=== PATIENT | male | born 1975 | race Caucasian/White ===

== ENCOUNTER → 2017-11-03 | Day surgery (SDC) | payer OTHER ==
[2017-10-21 08:25] VITALS: Ht 177.8 cm; Wt 100.0 kg
--- NOTE | 2017-11-02 16:30 | History and Physical: Surg Cnt ---
History & Physical Date Nov 02, 2017. Chief Complaint sinus infections History of Present Illness The patient is a 42 year old male with complaints of chronic sinusitis Allergies Coded Allergies: NO KNOWN DRUG ALLERGIES (Verified Allergy, Unknown, ., 10/21/17) Home Medications Scheduled Hydrochlorothiazide (Hctz), 50 MG PO QAM Scheduled PRN Albuterol Sulfate (Proair Respiclick), 2 PUFF INH Q4H PRN for Shortness of Breath Alprazolam (Xanax), 0.25 MG PO DAILY PRN for Anxiety Diagnosis chronic sinusitis, septal deviation Plan of Treatment septoplasty, endoscopic sinus surgery
[~2017-11-03] VITALS: Ht 177.8 cm; Wt 100.0 kg
[~2017-11-03] MED LIST: ALBU18002 INH; ALPR0.25 PO; ATROPINE SULFATE 0.1 MG/ML 5ML SYR IV PRN; BACITRACIN OINT 15 GM TUBE ONE; CEFAZOLIN 2000MG IV PUSH 10 ML IV SCH; DEXAMETHASONE SOD INJ 4 MG/ML VIAL ONE; EpHEDrine SULFATE INJ 50 MG/ML AMP IV PRN; EpINEphrine INJ 1MG/ML AMP 1 MG/ML AMP ONE; FENTANYL CITRATE INJ 50 MCG/1 ML 2 ML VIAL ONE; GELATIN SPONGE 12-7MM ONE; HYDR50TA3 PO; HYDROmorphone INJ 1 MG/ML SYR IV PRN; HydrALAZINE HCL 20 MG/ML VIAL ONE; LABETALOL HCL IV 5 MG/ML 20ML IV ONE; LABETALOL HCL IV 5 MG/ML 20ML IV PRN; LACTATED RINGER'S 1000ML 1,000 ML IV SCH; LIDO 2%/EPINEPHRINE 1:100000 20 ML VIAL INFIL ONE; LIDOCAINE 4% MPF SOAK 5 ML = 1 DOSE TOP ONE; LIDOCAINE HCL 2% 2 ML VIAL (20MG/ML) ONE; MIDAZOLAM HCL 1 MG/ML 2ML VIAL ONE; ONDANSETRON INJ 2 MG/ML 2 ML VIAL IV PRN; ONDANSETRON INJ 2 MG/ML 2 ML VIAL ONE; OXYC-57 PO; OXYCODONE/ACETAMINOPHEN 5-325 TAB PO PRN; PROMETHAZINE HCL INJ 12.5 MG in SODIUM CHLORIDE 0.9% 50ML 50 ML IV PRN; PROPOFOL IV EMULSION 10 MG/ML 20 ML VIAL IV ONE; SODIUM CHLORIDE 0.9% 1000ML 1,000 ML IV SCH
--- NOTE | 2017-11-03 07:57 | History & Physical Bridge Note ---
H&P Re-Evaluation Bridge Note: I have examined the patient, reviewed the History & Physical and in the interval since the performance of the History & Physical I have noted the following changes of clinical significance: No changes noted
--- NOTE | 2017-11-03 10:54 | [facility] Post Operative Brief Note ---
Immediate Operative Summary Operative Date Nov 03, 2017. Pre-Operative Diagnosis Chronic Sinusitis; Septal Deviation Post-Operative Diagnosis Same Procedure(s) Performed Septoplasty, Endoscopic Sinus Surgery using [employer] Navigation, Bilateral Maxillary and Bilateral Frontal Sinus Surgery Surgeon Dr. Dash Casino Dealer Surgeon(s) None Estimated Blood Loss 40 ML Findings polypoid mucosal thickening Specimens None Anesthesia Gen Complication(s) None Disposition Recovery Room / PACU
--- NOTE | 2017-11-03 10:55 | Discharge Instructions-SurgCtr ---
Discharge Instructions Date of Service Nov 03, 2017. Visit Reason for Visit: Chronic Sinusitis, Septal Deviation Discharge Discharge Diagnosis / Problem: same Discharge Goals Goal(s): Improve function Activity Recommendations Activity Limitations: resume your previous activity Anesthesia . Post Anesthesia Instructions: If you have had General Anesthesia or IV Sedation: * Do not drive today. * Resume driving when surgeon permits. * Do not make important decisions or sign legal documents today. * Call surgeon for: 1. Temperature elevations greater than 101 degrees F. 2. Uncontrollable pain. 3. Excessive bleeding. 4. Persistent nausea and vomiting. 5. Medication intolerance (nausea, vomiting or rash). * For nausea and vomiting use only clear liquids such as: tea, soda, bouillon until nausea subsides, then gradually increase diet as tolerated. * If you have any concerns or questions, call your surgeon's office. If physician is unavailable and it is an emergency, call 911 or go to the nearest emergency room. . Instructions / Follow-Up Instructions / Follow-Up ACTIVITY RECOMMENDATIONS: * Being up and around is good, but no strenuous activity, heavy lifting or physical exertion for one week. * Keep your head elevated 30 degrees when lying down or sleeping. * Do not blow your nose for 48 hours, sniff back instead. * Avoid hot showers. OVER THE COUNTER MEDICATIONS: * You may use Tylenol * Avoid aspirin or aspirin containing products, e.g. as they may increase bleeding. SPECIAL CARE INSTRUCTIONS: * Expect to have bloody drainage from your nose and/or down your throat for one to three days. Change drip pad as needed. * Begin irrigating your nose with saline solution today, at least six to ten times per day and sniff back to help remove old clots or crust. * You may experience nasal and facial congestion, pain and pressure, this is normal. * Please call with any significant and/or progressive pain, redness, swelling around the eyes, visual changes, fever of 101.5 degrees F, active bleeding or any problems or concerns. * If active bleeding occurs, spray the nose three times at one minute intervals with Afrin spray and call or cell phone: . If unable to reach the doctor, go to the nearest Emergency Department. Special Diet: * Avoid extremely hot fluids. FOLLOW UP VISIT: Follow-up Visit with Dr. Dash If not already scheduled, please call to schedule. Diet Recommendations Home Diet: no limitations Procedures Procedures Performed: Septoplasty, Endoscopic Sinus Surgery using [employer] Navigation, Bilateral Maxillary and Bilateral Frontal Sinus Surgery Pending Studies Studies pending at discharge: no Medical Emergencies . Who to Call and When: Medical Emergencies: If at any time you feel your situation is an emergency, please call 911 immediately. . Non-Emergent Contact Non-Emergency issues call your: Primary Care Provider . . "Provider Documentation" section prepared by Elif Dash. . [place] Drug Monitoring Program Search Results: no issues identified
--- NOTE | 2017-11-03 11:13 | [facility] Operative Report ---
Operative Report Operative Date Nov 03, 2017. Pre-Operative Diagnosis Chronic Sinusitis; Septal Deviation Post-Operative Diagnosis Same Procedure(s) Performed Septoplasty, Endoscopic Sinus Surgery using [employer] Navigation, Bilateral Maxillary and Bilateral Frontal Sinus Surgery Surgeon Dr. Dash Retort Furnace Operator Surgeon(s) None Estimated Blood Loss 40 ML Findings Polypoid mucosal thickening in ethmoid sinuses and nasal frontal ducts and maxillary sinuses Specimens None Anesthesia general with LMA Complication(s) None Disposition Recovery Room / PACU [employer] Indications 42-year-old gentleman with significant nasal obstruction, recurrent and chronic sinusitis, tightness aggravating his asthma, and sleep apnea with inability to wear his CPAP Description of Procedure The patient was brought to the operating room and placed in the supine position. He was prepped and draped in the usual sterile manner. [employer] device was calibrated and used for the entire procedure. The nose was decongested using topical cottonoids with a solution of 4 mL of 4% Xylocaine with 1 mL of epinephrine. Injection of 2% Xylocaine with 1 1000 strength epinephrine was also used. The right maxillary sinus was cannulated with guidewire and dilated using the 6 mm balloon as was the left maxillary sinus. The left nasal frontal duct was cannulated with guidewire and dilated using the 6 mm balloon the guidewire was left in place as a marker frontal sinusotomy was performed using the shaver couple with the [employer] device following the guidewire superiorly opening up the Shane nasi cell by removing the anterior wall than the posterior wall of the Shane nasi cell to open up the nasal frontal duct leaving the mucosa there are intact. At this point total ethmoidectomy was performed using the shaver opening up the bullae ethmoidalis going through the ground lamella into the posterior ethmoid air cells delineating the posterior most ethmoid air cell along with the skull base superiorly and lamina papyracea bilaterally and then following the structures anteriorly exonerating all the posterior and then all the anterior ethmoid air cells up to the previously dilated nasal frontal duct. Maxillary sinus was opened by removing polypoid mucosa at the posterior border at the anterior wall the bullae ethmoidalis. The right frontal sinusotomy total ethmoidectomy and maxillary sinus antrostomy was performed in a similar manner. Endoscopic septoplasty was performed removing a severely deviated septum toward the right. A right Lorenzo incision was made and the mucoperichondrium was elevated off the left side the septum. Cartilage incision was made and bilateral posterior tunnels were elevated. Cartilage was inferiorly from the vomer maxillary crest and posteriorly from the perpendicular plate of the ethmoid. Deviated portion of the cartilage and the perpendicular plate of the ethmoid were removed in small pieces using the Tung rongeurs and the caudal dissector and the Man forceps. A cartilaginous strip of cartilage was removed from inferiorly to allow the septum to return to the midline. Propel stents were placed. A single piece of Gelfoam was placed along the right side of the septum packing the mucoperichondrial flap in place. The patient her procedure well was taken recovery are in satisfactory condition. I attest to the content of the Intraoperative Record and any orders documented therein. Any exceptions are noted below.
[2017-11-03] MEDS: FENTANYL CITRATE INJ 50 MCG/1 ML 2 ML VIAL IV PRN ×4 (11:27→12:02)
[2017-11-03] MEDS: HydrALAZINE HCL 20 MG/ML VIAL IV. PRN ×3 (12:20→12:47)
--- NOTE | 2017-11-03 13:05 | Anesthesia Progress Nt - [facility] ---
Anesthesia Post Op Note Date & Time Nov 03, 2017 at 13:05 Vital Signs Pain Intensity: 4.0 Vital Signs Past 12 Hours Date Time Temp Pulse Resp B/P (MAP) Pulse Ox O2 Delivery O2 Flow Rate FiO2 11/03/17 12:50 84 4 99 18 12:50 84 4 18 12:45 84 4 142/104 100 11/03/18 12:45 84 4 18 12:44 145/103 18 12:40 83 15 18 12:40 83 15 160/117 100 18 12:35 84 10 149/107 95 18 12:35 83 10 18 12:30 84 10 144/107 11/03/17 12:30 10 11/03/17 12:25 81 6 18 12:25 85 6 157/110 92 11/03/17 12:20 12 11/03/17 12:20 79 12 145/104 18 12:15 76 15 152/121 97 11/03/17 12:15 86 15 18 12:10 69 10 18 12:10 64 10 170/115 18 12:05 72 10 160/118 18 12:05 76 10 18 12:00 71 8 167/121 100 18 12:00 76 8 18 11:55 74 6 11/03/18 11:55 78 6 157/107 90 18 11:50 86 18 142/110 100 18 11:50 86 18 18 11:45 83 9 140/113 99 11/03/18 11:45 77 9 11/03/18 11:40 74 10 11/03/18 11:40 79 10 146/115 18/18 11:35 75 13 144/105 18/18 11:35 13 18/18 11:31 148/101 18/18 11:30 83 15 96 18/18 11:30 83 15 18/18 11:25 73 12 153/109 99 11/03/18 11:25 74 12 11/03/18 11:22 157/118 1/18/18 11:20 81 22 166/122 100 11/03/17 11:20 82 22 11/03/17 11:19 151/118 11/03/17 11:17 165/127 11/03/17 11:16 175/119 11/03/17 11:15 36.6 86 12 173/120 100 Humidified Oxygen 7 Mask 11/03/17 11:15 82 13 96 11/03/17 11:15 85 13 11/03/17 07:37 36.3 75 16 133/89 (104) 95 Room Air Notes Mental Status: alert / awake / arousable, participated in evaluation Pt Amnestic to Procedure: Yes Nausea / Vomiting: adequately controlled Pain: adequately controlled Airway Patency, RR, SpO2: stable & adequate BP & HR: stable & adequate Hydration State: stable & adequate Anesthetic Complications: no major complications apparent
[2017-11-03 13:08] VITALS: TEMP 36.9
[2017-11-03 13:56] VITALS: BP 132/83; PULSE 93; O2SAT 94
== END | disposition home or self-care (01) ==
LOC: X.SURG 07:19
PROVIDERS: ATTEND Otolaryngology
DX: J32.9 Chronic sinusitis, unspecified (principal); J34.2 Deviated nasal septum; J45.909 Unspecified asthma, uncomplicated; K76.0 Fatty (change of) liver, not elsewhere classified